=== PATIENT | female | born 1960 | race Caucasian/White ===

== ENCOUNTER 2017-03-22 08:54 | Emergency (ER) | payer BC ==
[~2017-03-22] VITALS: Ht 170.2 cm; Wt 74.1 kg
[2017-03-22 09:04] VITALS: Ht 170.2 cm; Wt 74.1 kg
[2017-03-22] MEDS ORDERED: PANTOPRAZOLE IV 80 MG in SOD CHLORIDE 0.9% 100 ML IVPB STA (09:33)
[2017-03-22] MEDS ORDERED: PANTOPRAZOLE IV 80 MG in SOD CHLORIDE 0.9% 100 ML IV STA (09:33)
[2017-03-22] MEDS ORDERED: SOD CHLORIDE 0.9% 1,000 ML IV STA (09:33)
[2017-03-22] MEDS ORDERED: ASPI-664 PO (09:46)
[2017-03-22] MEDS ORDERED: HYDR500C3 PO (09:46)
[2017-03-22 10:02] LABS: ADD SCAN DIFF NO
[2017-03-22 10:04] LABS: BASOPHILS % 0.5 % (0.0-2.0); EOSINOPHILS # 0.1 10^3/ul (0.0-0.5); EOSINOPHILS % 1.1 % (0.0-7.0); HEMATOCRIT 35.1 % (37.0-47.0); HEMOGLOBIN 11.4 g/dl (12.0-16.0); LYMPHOCYTES # 0.9 10^3/ul (0.8-2.9); LYMPHOCYTES % 10.2 % (15.0-51.0); MEAN CORPUSCULAR HEMOGLOBIN 30.2 pg (29.0-33.0); MEAN CORPUSCULAR HGB CONC 32.5 g/dl (32.0-37.0); MEAN CORPUSCULAR VOLUME 93.1 fl (82.0-101.0); MEAN PLATELET VOLUME 9.5 fl (7.4-10.4); MONOCYTE # 0.3 10^3/ul (0.3-0.9); MONOCYTES % 3.8 % (0.0-11.0); NEUTROPHIL # 7.4 10^3/ul (1.6-7.5); NEUTROPHILS % 83.9 % (39.0-77.0); PLATELET COUNT 645 10^3/UL (140-415); RED BLOOD COUNT 3.77 10^6/ul (4.20-5.40); RED CELL DISTRIBUTION WIDTH 14.7 % (11.5-14.5); WHITE BLOOD COUNT 8.8 10^3/ul (4.8-10.8)
--- NOTE | 2017-03-22 10:12 | RADRPT ---
PROCEDURE: XR Chest. CLINICAL INDICATION: Chest pain TECHNIQUE: Single frontal view of the chest was obtained COMPARISON: None FINDINGS: The heart and mediastinum are within normal limits. There is mild left basilar atelectasis. The lungs are otherwise clear. There is no pleural effusion or pneumothorax. The bones and soft tissue show no acute change. IMPRESSION: Very mild left basilar atelectasis. Otherwise, no significant abnormalities are identified. RPTAT:AAJJ Physician Tea Date Time Electronically viewed and signed by Physician Tea on 03/22/2017 10:12 /
[2017-03-22 10:30] LABS: INR 1.09; PROTIME 14.1 Sec (12.2-14.2); PT RATIO 1.1
[2017-03-22 10:31] LABS: PARTIAL THROMBOPLASTIN TIME 32.7 Sec (25.0-35.0)
[2017-03-22 10:39] LABS: ALBUMIN 3.7 g/dl (3.3-4.9); POTASSIUM 3.6 mmol/L (3.5-5.1)
[2017-03-22 10:42] LABS: ALBUMIN/GLOBULIN RATIO 1.32; CALCIUM 8.5 mg/dl (8.4-10.2); CREATININE 0.61 mg/dl (0.44-1.00); TOTAL PROTEIN 6.5 g/dl (6.1-8.1)
[2017-03-22 10:57] VITALS: BP 135/85; PULSE 88; RESP 20
--- NOTE | 2017-03-22 11:43 | ERA ---
ER Documentation Chief Complaint Date/Time DATE: 03/22/17 TIME: 11:38 Chief Complaint NV, epigastric pain HPI This is a 56-year-old female here for nausea vomiting diarrhea. The patient's had complaints of black diarrhea 3 over the past 24 hours as well as nausea vomiting this morning that her groins are of coffee. There is no bright red blood in the vomit or diarrhea. She is complaining of epigastric burning sensation as well for the past 24 hours. No chest pain shortness of breath no history of NSAID abuse or alcohol abuse. The patient takes 1 baby aspirin a day. No back pain no syncope dizziness or weakness ROS All systems reviewed and are negative except as per history of present illness. Medications Home Meds Reported Medications Aspirin (Low Dose Aspirin) 81 Mg Tablet.dr, 81 MG PO DAILY, #30 TAB 03/22/17 Hydroxyurea* (Hydroxyurea*) 500 Mg Capsule, 500 MG PO BID, CAP 03/22/17 Allergies Allergies: Coded Allergies: No Known Allergy (Unverified , 03/22/17) PMhx/Soc History of Surgery: No Anesthesia Reaction: No Hx Neurological Disorder: No Hx Respiratory Disorders: No Hx Cardiac Disorders: No Hx Psychiatric Problems: No Hx Miscellaneous Medical Probl: No (platelet problem, taking hydroxyrea at home ) Hx Alcohol Use: No Hx Substance Use: No Hx Tobacco Use: No Smoking Status: Never smoker FmHx Family History: No coronary disease Physical Exam Vitals Vital Signs Date Time Temp Pulse Resp B/P Pulse Ox O2 Delivery O2 Flow Rate FiO2 03/22/17 10:57 88 20 135/85 98 Room Air 03/22/17 09:04 98.8 85 18 105/53 98 Physical Exam Const: Well-developed, well-nourished Head: Atraumatic, normocephalic Eyes: Normal Conjunctiva, PERRLA, EOMI, normal sclera, no nystagmus ENT: Normal External Ears, Nose and Mouth, moist mucus membranes. Neck: Full range of motion. No meningismus, no lymphadenopathy. Resp: Clear to auscultation bilaterally, no wheezing, rhonchi, rales Cardio: Regular rate and rhythm, no murmurs, S1 S2 present Abd: Soft, mild epigastric tenderness, non distended. Normal bowel sounds, no guarding or rebound, no pulsitile abdominal masses or bruits Skin: No petechiae or rashes, no ecchymosis , no maculopapular rash Back: No midline or flank tenderness Ext: No cyanosis, or edema, FROM x 4, normal inspection, neurovascularly intact x 4 Neur: Awake and alert, STR 5/5 x 4, sensation intact x 4, no focal findings, cerebellum intact Psych: Normal Mood and Affect Result Diagram: 03/22/17 0945 03/22/17 0945 Results 24 hrs Laboratory Tests Test 03/22/17 09:45 White Blood Count 8.810^3/ul Red Blood Count 3.7710^6/ul Hemoglobin 11.4g/dl Hematocrit 35.1% Mean Corpuscular Volume 93.1fl Mean Corpuscular Hemoglobin 30.2pg Mean Corpuscular Hemoglobin Concent 32.5g/dl Red Cell Distribution Width 14.7% Platelet Count 10526^3/UL Mean Platelet Volume 9.5fl Neutrophils % 83.9% Lymphocytes % 10.2% Monocytes % 3.8% Eosinophils % 1.1% Basophils % 0.5% Nucleated Red Blood Cells % 0.0/100WBC Neutrophils # 7.410^3/ul Lymphocytes # 0.910^3/ul Monocytes # 0.310^3/ul Eosinophils # 0.110^3/ul Basophils # 0.010^3/ul Nucleated Red Blood Cells # 0.010^3/ul Prothrombin Time 14.1Sec Prothrombin Time Ratio 1.1 INR International Normalized Ratio 1.09 Activated Partial Thromboplast Time 32.7Sec Sodium Level 139mmol/L Potassium Level 3.6mmol/L Chloride Level 102mmol/L Carbon Dioxide Level 26mmol/L Anion Gap 15 Blood Urea Nitrogen 47mg/dl Creatinine 0.61mg/dl Glucose Level 100mg/dl Calcium Level 8.5mg/dl Total Bilirubin Pending Direct Bilirubin 0.00mg/dl Indirect Bilirubin Pending Aspartate Amino Transf (AST/SGOT) 25IU/L Alanine Aminotransferase (ALT/SGPT) 39IU/L Alkaline Phosphatase 53IU/L Total Protein 6.5g/dl Albumin 3.7g/dl Globulin 2.80g/dl Albumin/Globulin Ratio 1.32 Lipase 55U/L Current Medications Medications (Trade) Dose Ordered Sig/Boris Route PRN Reason Start Time Stop Time Status Last Admin Dose Admin Sodium Chloride 1,000 ml @ 1,000 mls/hr Q1H STAT IV 03/22/17 09:33 03/22/17 10:32 DC 03/22/17 10:40 Pantoprazole 80 mg/Sodium Chloride 100 ml @ 400 mls/hr ONCE STAT IVPB 03/22/17 09:33 03/22/17 09:47 DC 03/22/17 10:40 Pantoprazole/ Sodium Chloride (Protonix Iv/NS) 100 ml @ 10 mls/hr ONCE STAT IV 03/22/17 09:33 03/22/17 19:32 Procedures/MDM Patient was started on IV Protonix bolus and drip. Blood work is relatively stable with some mild anemia Family is here and stated they wanted to take the patient to [facility]. I told him I can arrange a transfer and is not necessary to sign out AGAINST MEDICAL ADVICE. The family states that the patient wants to go to [place] and it is they do not want to be transferred that they will drive her there. I told the family and the patient the risk of doing this as the patient has a GI bleed that could spontaneously get worse she could have exsanguination / . Family understands the risks and still wants to leave and they will drive themselves there to [place]. They will agree to sign out AGAINST MEDICAL ADVICE Departure Diagnosis: Primary Impression: Upper GI bleed Condition: Stable Patient Instructions: Gi Bleed, Upper (Stable) Additional Instructions: DO NOT GO HOME. GO DIRECTLY TO HOSPITAL[facility] DO Mar 22, 2017 11:43
[2017-03-22] MEDS ORDERED: ONDANSETRON 4 MG INJ ONE (11:44)
[2017-03-22 11:47] LABS: BILIRUBIN,INDIRECT 0.4 mg/dl (0-1.1); BILIRUBIN,TOTAL 0.4 mg/dl (0.2-1.3)
== END 2017-03-22 13:15 | disposition left against medical advice (07) ==
LOC: E/R 08:54
DX: K92.0 Hematemesis (principal)
CPT/HCPCS: 71010; 80053; 83690; 85025; 85610; 85730; 86850; 86900; 86901; C9113; J2405; J7030; 36415; 96374